=== PATIENT | male | born 1965 | race Caucasian/White ===

== ENCOUNTER 2020-02-01 22:39 | Emergency (ER) | payer SELFPAY ==
[~2020-02-01] VITALS: Ht 175.3 cm; Wt 75.0 kg
[~2020-02-01 22:39] MED LIST: NAPR-232 PO
[2020-02-01 22:48] VITALS: BP 152/91
[2020-02-01] MEDS ORDERED: TETanus/Pertussis (Acell)/Diphther VAC/PF (Tdap-Adult) 0.5ml syringe IMVAC ONE (23:00)
[2020-02-01] MEDS ORDERED: LIDOcaine 1% W/epiNEPHrine 1:200,000 10ml vial IJ ONE ×2 (23:00→23:05)
== END 2020-02-01 23:47 | disposition home or self-care (01) ==
LOC: ER 22:40
DX: S60.450A Superficial foreign body of right index finger, initial encounter (principal); Z90.49 Acquired absence of other specified parts of digestive tract; Z56.0 Unemployment, unspecified; Z88.5 Allergy status to narcotic agent; Z79.899 Other long term (current) drug therapy; X58.XXXA Exposure to other specified factors, initial encounter; Y93.89 Activity, other specified; Y92.89 Other specified places as the place of occurrence of the external cause; Y99.8 Other external cause status
CPT/HCPCS: 10120; 90471; 90715; 96374; 99284; 99285